=== PATIENT | male | born 1955 | race Caucasian/White ===

== ENCOUNTER 2023-01-04 09:17 | Observation (INO) ==
[~2023-01-04 09:17] MED LIST: BUPIVACAINE **LIPOSOME/PF 13.3 MG/ML (266MG/ 20ML) VIAL (RESTRICTED) INFIL ONE; Buffered Lidocaine 1% SYRIN 1 ml INTRADERM ONE; Bupivacaine 0.25% SDV 30 ML ONE; Lactated Ringers 1000 ml BAG 1,000 ML IV SCH
[2023-01-04] MEDS ORDERED: ceFAZolin 2 GM PREMIX 2 GM/50 ML BAG ONE (09:40)
[2023-01-04] MEDS ORDERED: Midazolam 2 mg/2 ml VIAL 1 mg/ml 2 ml VIAL (2 mg) ONE (10:19)
[2023-01-04] MEDS ORDERED: Lidocaine 2% PF 5 ML VIAL ONE (10:20)
[2023-01-04] MEDS ORDERED: Phenylephrine IV 10 MG/ML 1 ml VIAL ONE (11:45)
[2023-01-04] MEDS ORDERED: Ondansetron 4 mg VIAL 2 MG/ML 2 ml VIAL ONE (11:45)
[2023-01-04] MEDS ORDERED: Dexamethasone IV 4 MG/ML VIAL 1 ml VIAL ONE (11:45)
[2023-01-04] MEDS ORDERED: Propofol 10 MG/ML 20 ML BTL ONE (12:09)
[2023-01-04] MEDS ORDERED: Magnesium Hydroxide LIQ 30 ML UDC PO PRN (13:49)
[2023-01-04] MEDS ORDERED: Morphine 2 MG/ML SYRINGE IV PRN (13:49)
[2023-01-04] MEDS ORDERED: Lactulose 30 ml UDC PO PRN (13:49)
[2023-01-04] MEDS ORDERED: Ondansetron ODT 4 mg TAB 4 MG TAB PO PRN (13:49)
[2023-01-04] MEDS ORDERED: Ondansetron 4 mg VIAL 2 MG/ML 2 ml VIAL IV PRN (13:49)
[2023-01-04] MEDS: Lactated Ringers 1000 ml BAG 1,000 ML IV SCH (15:14)
[2023-01-04] MEDS ORDERED: Nicotine PATCH 14 MG/24 HR PATCH ONE (15:48)
[2023-01-04] MEDS: Nicotine PATCH 14 MG/24 HR PATCH TRANSDERM SCH (16:34)
[2023-01-04] MEDS: ceFAZolin 1 GM ADVAN 1 GM in NS 0.9% 50 ML 50 ML IVPB SCH (19:55)
[2023-01-04] MEDS: Magnesium Hydroxide LIQ 30 ML UDC PO SCH (22:21)
[2023-01-05] MEDS: Lactated Ringers 1000 ml BAG 1,000 ML IV SCH (01:15)
[2023-01-05] MEDS: ceFAZolin 1 GM ADVAN 1 GM in NS 0.9% 50 ML 50 ML IVPB SCH (04:20)
[2023-01-05 05:26] LABS: Urine Appearance Clear; Urine Bilirubin Negative (Negative); Urine Blood 1+ (Negative); Urine Color Colorless; Urine Glucose Negative (Negative); Urine Ketones Negative (Negative); Urine Nitrite Negative (Negative); Urine Protein Negative (Negative); Urine Specific Gravity 1.004 (1.002-1.030); Urine Urobilinogen Negative (Negative)
[2023-01-05 05:29] LABS: Urine Bacteria Absent (Absent); Urine Red Blood Cell Trace(0-2/hpf) (Absent); Urine Squamous Epithelial Cell Present (Absent); Urine White Blood Cell Trace(0-5/hpf) (Absent)
[2023-01-05 06:13] LABS: Hematocrit 37 % (42-52); Hemoglobin 12.5 g/dL (14.0-18.0); Mean Platelet Volume 7.2 fL (7.4-10.4); Platelet Count 190 10^3/uL (150-450)
[2023-01-05 06:49] LABS: Calcium 8.4 mg/dL (8.6-10.3); Creatinine, Serum 0.97 mg/dL (0.67-1.17); eGFR CKD-EPI 84.5 (>60)
[2023-01-05] MEDS ORDERED: Nicotine PATCH 14 MG/24 HR PATCH TRANSDERM SCH (09:00)
[2023-01-05] MEDS ORDERED: Vitamin THERAPEUTIC TAB PO SCH (09:00)
[2023-01-05] MEDS: Nicotine PATCH 14 MG/24 HR PATCH TRANSDERM SCH (10:35)
[2023-01-05] MEDS: Magnesium Hydroxide LIQ 30 ML UDC PO SCH (10:36)
[2023-01-05 11:16] VITALS: BP 123/70
== END 2023-01-05 11:50 | disposition home or self-care (01) ==
LOC: OR 09:17 → SSU 09:17
PROVIDERS: ADMIT Orthopaedic Surgery Sports Medicine; ATTEND Orthopaedic Surgery Sports Medicine